=== PATIENT | female | born 1995 | race Hispanic/Latino ===

== ENCOUNTER 2018-08-04 18:14 | Emergency (ER) | payer MEDICAID ==
[2018-08-04 18:26] VITALS: BMI 24.2
--- NOTE | 2018-08-04 18:38 | C.PDOC ---
History Of Present Illness 22 year old tobacco-smoking female with no PMHx presents to the ED complaining of cough and congestion for 3 weeks. Cough is productive of yellow sputum. Associated with sore throat and right-sided lower rib pain for the last 4 days. There are no known sick contacts. No recent travel. Patient did not receive flu vaccine this year. Otherwise she denies any fevers, chills, chest pain, SOB, nausea, vomiting, abdominal pain, headache, neck pain, dizziness or urinary complaints. Time Seen by Provider: 08/04/18 18:37 Chief Complaint (Nursing): ENT Problem History Per: Patient History/Exam Limitations: no limitations Onset/Duration Of Symptoms: Days Current Symptoms Are (Timing): Still Present Quality Of Discomfort: Aching Past Medical History Reviewed: Historical Data, Nursing Documentation, Vital Signs Vital Signs: Last Vital Signs Temp 98.9 F 08/04/18 18:26 Pulse 98 H 08/04/18 18:26 Resp 17 08/04/18 18:26 BP 119/76 08/04/18 18:26 Pulse Ox 96 08/04/18 18:26 - Medical History PMH: No Chronic Diseases Family History: States: Unknown Family Hx - Social History Hx Tobacco Use: Yes Hx Alcohol Use: Yes Hx Substance Use: No - Immunization History Hx Tetanus Toxoid Vaccination: No Hx Influenza Vaccination: No Hx Pneumococcal Vaccination: No Review Of Systems Except As Marked, All Systems Reviewed And Found Negative. Constitutional: Negative for: Fever, Chills Eyes: Negative for: Vision Change ENT: Positive for: Nose Congestion, Throat Pain Cardiovascular: Negative for: Chest Pain, Palpitations, Light Headedness Respiratory: Positive for: Cough, Sputum. Negative for: Shortness of Breath Gastrointestinal: Negative for: Nausea, Vomiting, Abdominal Pain Genitourinary: Negative for: Dysuria, Frequency Musculoskeletal: Positive for: Other (Right rib pain). Negative for: Neck Pain Skin: Negative for: Rash Neurological: Negative for: Weakness, Numbness, Headache, Dizziness Physical Exam - Physical Exam Appears: Well, Non-toxic, No Acute Distress Skin: Warm, Dry, No Rash Head: Atraumatic, Normacephalic Eye(s): bilateral: Normal Inspection Ear(s): Bilateral: Normal Nose: Normal Oral Mucosa: Moist Throat: Normal, No Erythema, No Exudate Neck: Normal ROM, Supple, No Other (no meningeal signs) Chest: Symmetrical, Tenderness (right inferior lateral rib tenderness) Cardiovascular: Rhythm Regular, No Murmur Respiratory: Normal Breath Sounds, No Rales, No Rhonchi, No Wheezing Gastrointestinal/Abdominal: Soft, No Distention Back: No Vertebral Tenderness, Paraspinal Tenderness (to right side parathoracic region) Extremity: Normal ROM, Capillary Refill (<2s) Extremity: Bilateral: Atraumatic, Normal Color And Temperature, Normal ROM Pulses: Left Radial: Normal, Right Radial: Normal Neurological/Psych: Oriented x3, Normal Speech, Normal Motor, Normal Sensation Gait: Steady ED Course And Treatment O2 Sat by Pulse Oximetry: 96 (RA) Pulse Ox Interpretation: Normal Medical Decision Making Medical Decision Making: Plan: - flu swab - rapid strep test - chest x-ray - urinalysis - urine culture - toradol Progress: Labs reviewed, UA is clear. Flu and strep negative. CXR negative 20:45 On reassessment patient remains afebrile, AAOx3, resting comfortably, in no distress. Will discharge patient home with Rx for Azithromycin secondary to length of symptoms and smoking history, Guaifenesin, and Ventolin inhaler. Advised to follow up with PMD Diagnostic testing results and plan of care discussed with patient. Strict instructions given regarding prescription use, importance of followup, and signs/symptoms to return to ER including SOB, chest pain, abdominal pain, or any other new/worsening symptoms. Pt verbalized understanding of discussion. Patient is A&Ox3, ambulating with steady gait, with vital signs stable for discharge. Disposition - Disposition Referrals: [facility] [Outside] Disposition: HOME/ ROUTINE Disposition Time: 21:00 Condition: GOOD Additional Instructions: Z-angus as directed Ventolin every 6 hours as needed for cough Ibuprofen as needed for back pain Followup with primary within 2 days Return to ER with any new/worsening symptoms Prescriptions: Albuterol Sulfate [Ventolin Hfa] 2 puff IH Q6 #60 puff Azithromycin [Z-Angus] 250 mg PO DAILY #6 tab guaiFENesin [guaifENESIN] 100 mg PO Q8H #1 bottle Instructions: Acute Bronchitis Forms: General Discharge Instructions, [facility] (Vietnamese), Work Excuse - Clinical Impression Clinical Impression: Lower respiratory tract infection - PA / MANAGER KNOWLEDGE / Resident Statement MD/DO has reviewed & agrees with the documentation as recorded. - Scribe Statement The provider has reviewed the documentation as recorded by the Scribe Susan Ayala All medical record entries made by the Scribe were at my direction and personally dictated by me. I have reviewed the chart and agree that the record accurately reflects my personal performance of the history, physical exam, medical decision making, and the department course for this patient. I have also personally directed, reviewed, and agree with the discharge instructions and disposition.
[2018-08-04 20:05] LABS: SQUAMOUS EPITHIAL < 1 /hpf (0-5); URINE BILIRUBIN NEGATIVE (NEGATIVE); URINE BLOOD NEGATIVE (NEGATIVE); URINE CLARITY Clear (Clear); URINE COLOR Yellow (YELLOW); URINE GLUCOSE (UA) NORMAL (Normal); URINE LEUKOCYTE ESTERASE NEG Leu/uL (Negative); URINE PROTEIN NEGATIVE (NEGATIVE); URINE UROBILINOGEN NORMAL mg/dL (0.2-1.0)
[2018-08-04 20:54] VITALS: BP 118/72; PULSE 81; RESP 18; TEMP 98.3
[2018-08-04 21:14] LABS: INFLUENZA A B NEGATIVE FOR FLU A/B (NEGATIVE)
[2018-08-04 21:31] VITALS: O2SAT 96
--- NOTE | 2018-08-05 08:21 | RAD ---
Date of service: 08/04/2018 HISTORY: cough, r/o pneumonia COMPARISON: No prior. TECHNIQUE: Chest PA and lateral FINDINGS: LUNGS: No active pulmonary disease. PLEURA: No significant pleural effusion identified. No pneumothorax apparent. CARDIOVASCULAR: No aortic atherosclerotic calcification present. Normal cardiac size. No pulmonary vascular congestion. OSSEOUS STRUCTURES: No significant abnormalities. VISUALIZED UPPER ABDOMEN: Normal. OTHER FINDINGS: Nipple ring identified left breast. IMPRESSION: No acute cardiopulmonary disease appreciated.
== END 2018-08-04 21:21 | disposition home or self-care (01) ==
LOC: C.ER 18:14
DX: J22 Unspecified acute lower respiratory infection (principal); Z72.0 Tobacco use
CPT/HCPCS: 71046; 81001; 87070; 87086; 87430; 87804; 96372; 99284; J1885